=== PATIENT | male | born 1935 | race Caucasian/White ===

== ENCOUNTER 2018-05-06 10:45 | Outpatient (CLI) | payer MEDICARE, OTHER | END 2018-05-06 10:46 | disposition home or self-care (01) | LOC: SC 10:45 | PROVIDERS: ATTEND Nurse Practitioner Family | DX: G47.33 Obstructive sleep apnea (adult) (pediatric) (principal) | CPT/HCPCS: 99214; G0463; 99212 ==

== ENCOUNTER 2019-05-04 10:32 | Outpatient (CLI) | payer MEDICARE, OTHER ==
[2019-05-04 11:41] VITALS: BP 150/60
--- NOTE | 2019-05-04 11:41 | SLEEP CARE CONSULTATION ---
Information from patient questionnaire entered by Kristal Nova. I have reviewed and concur with the information entered by Kristal Nova. This document represents the service I personally performed and the decisions made by me, Briseyda Hernandez, RN, MSN, BANKING SUPERVISOR. History of Present Illness Previous diagnosis: Severe, Obstructive Sleep Apnea-Hypopnea Syndrome AHI: 36.8 Reason for CPAP/BiPAP follow up: annual Accompanied by: Spouse Equipment type: CPAP Equipment obtained from: [facility] (having problems getting supplies despite repeated attempts) Mask style: Full face Backup mask available: Yes Last cushion change: 2 months Prior sleep studies: Yes Year and Where: 2014 [facility] CPAP Compliance Data - Data Reviewed with Patient Average duration of nightly device use: 7h 2m Compliance rate %: 90 Current pressure setting (cmH2O): 8-10 Humidity settin Heated hose settin Average residual AHI: 1.4 Average large leak: zero On Oxygen: Yes Subjective Patient concerns: reports: air blowing in eyes, nasal congestion (chronic), dry mouth, nose, throat, other (increase in exhale sound and sometimes difficult to exhale and wonders if due to mask vent. He brought in his CPAP to show. ). denies: aerophagia (most days), mask discomfort, mask leak noise, condensation in mask/hose, epistaxis Observed to snore while using device: No Current pressure setting perceived as: comfortable On therapy, patient: reports: sleeping better, more rested overall. denies: drowsiness while driving Initial [place] Sleepiness Scale score: 10 Current [place] Sleepiness Scale score: 8 Allergies and Home Medications Known drug allergies: No Home medication list reviewed: Yes Allergy and home medication list: Medication Name (generic/name brand) Strength & Dosage Lialda 1.2GM TBEC one twice daily Metformin HCL 1000mg tab one twice daily Atenolol 50mg tab one daily Lisinopril 5mg tab one daily y Lipitor (Atorvastatin Calcium) 10mg tab one daily Finasteride 5mg tab one daily Doxazosin Mesylate 8mg tab one daily at bedtime allergy med unknown name daily Clobetasol Propionate 0.05% cream Apply to affected area twice daily Nystatin-Triamcinolone [id number] U/GM Apply to affected area once daily Fluticasone Propionate 50 mcg/act nasal Two sprays each nostril once daily Fish Oil 1200mg cap one daily Vitamin C 1000mg tab one daily Multi-Vitamin/Minerals Tab one daily Nasal spray - unknown prn probiotic daily Review of Systems Review of systems same as previous: Yes Physical Exam Blood Pressure: 150/60 Heart Rate: 60 O2 Saturation: 96 Height: 5 ft 10.5 in Weight: 200 lb 9.6 oz Body Mass Index: 28.3 BMI Classification: Overweight Impression and Plan 1. Obstructive Sleep Apnea-Hypopnea Syndrome, severe, with good treatment compliance and good apnea control. On CPAP therapy, the patient has better sleep quality and is more rested overall. He brought his CPAP in as felt the mask or PAP was not working properly. He explained that it appears he is unable to exhale and there is a weird noise at the vent of his mask. I set up his CPAP and it was set properly and appeared to be working in pressure. The accuracy of that pressure would need to be checked by a water monometer by a DME. Thus to rule out if his concerns were due to a malfunction mask vent, I gave him a sample F&P medium Simplus full face mask, which is his style as it is unknown when he will get supplies. It is hoped the better fitting mask will resolve the mask leaks into his eyes. Thus if continued problems with new mask airflow / noise, he is to contact me. At that time, it will be determined if his CPAP needs to be checked for malfunction or the pressure adjusted. For his supply concerns, I will transfer him to a new DME. My sales recruiting coordinator will inform of his choices and I will make a DWO prescription. For oral dryness, I advised him to adjust heated hose as his humidity is at maximum. He is not yet due for a new device. Patient's apnea severity and rationale for treatment to reduce apnea, improve sleep quality and reduce cardiovascular and cerebrovascular events was reviewed. I also reviewed the benefit of consistent device use of CPAP for his hypertension. 2. Elevated blood pressure. Patient monitors rarely at home. Thus he was advised to start checking daily and contact his PCP if continues to be elevated. Health risks of too high of blood pressure range discussed. New goals are 120/80 but individualized by PCP. He was advised urgent follow up if 180/100 or higher. Patient agreed with plan. Blood pressure card given for monitoring. He has an appointment in a few weeks with his PCP. * Continue CPAP pressure at 8-10 cmH2O * try new mask * Contact if continued mask, air flow or noise issues. * Transfer of care * Adjust heated hose * Notify me if snoring with mask or feeling that the pressure is too much or too little * Attempt to lose weight * Follow up with PCP if continued elevation of blood pressure. * Return for follow up in 1 year , or sooner if concerns arise I spent 100% of this 37 minute visit face to face with the patient with greater than 50% of this was spent time counseling the patient and coordination of care.
== END 2019-05-04 10:33 | disposition home or self-care (01) ==
LOC: SC 10:32
PROVIDERS: ATTEND Nurse Practitioner Family
DX: G47.33 Obstructive sleep apnea (adult) (pediatric) (principal); R03.0 Elevated blood-pressure reading, without diagnosis of hypertension
CPT/HCPCS: 99214; G0463; 99212

== ENCOUNTER 2020-04-20 10:54 | Outpatient (CLI) | payer MEDICARE, OTHER ==
[2020-04-20 11:43] VITALS: BP 154/60
--- NOTE | 2020-04-20 11:43 | SLEEP CARE CONSULTATION ---
Information from patient questionnaire entered by Shasta Brizuela. I have reviewed and concur with the information entered by Shasta Brizuela. This document represents the service I personally performed and the decisions made by me, Briseyda Hernandez, RN, MSN, JAILER CHIEF. History of Present Illness Service Date and Time: 04/20/2020 1054 Previous diagnosis: Severe, Obstructive Sleep Apnea-Hypopnea Syndrome AHI: 36.8 (in 2014) Reason for follow up: annual (last seen 2019) Accompanied by: Spouse Equipment type: CPAP Equipment obtained from: [facility] Mask style: Full face Prior sleep studies: Yes Year and Where: 2014 - [facility] Type of Sleep Study: Polysomnography CPAP Compliance Data - Data Reviewed with Patient Average duration of nightly device use: 7.5 Compliance rate %: 97.2 (180 days) Current pressure setting (cmH2O): 8-10 Humidity settin Heated hose settin Average residual AHI: 2.1 Average large leak: 9 sec Subjective Missed days of use due to: reports: travel Patient concerns: reports: dry mouth, nose, throat (mild - moderate dry mouth every morning ). denies: aerophagia, mask discomfort, air blowing in eyes, mask leak noise, condensation in mask/hose, nasal congestion, epistaxis, other Observed to snore while using device: No Current pressure setting perceived as: comfortable On therapy, patient: reports: sleeping better, awakening more refreshed, being more awake and alert during the day, more rested overall, other. denies: drowsiness while driving Initial [place] Sleepiness Scale score: 10 (in 2014) Current [place] Sleepiness Scale score: 6 Allergies and Home Medications Known drug allergies: No Home medication list reviewed: No (changed blood pressure medication - unknown name and dose) Review of Systems Review of systems same as previous: Yes Physical Exam Blood Pressure: 154/60 Cuff size: regular Heart Rate: 66 O2 Saturation: 98 Height: 5 ft 10.5 in Weight: 195 lb 12.8 oz Body Mass Index: 27.6 BMI Classification: Overweight Impression and Plan 1. Obstructive Sleep Apnea-Hypopnea Syndrome, severe, with good treatment compliance and goo apnea control. On CPAP therapy, the patient has better sleep quality and is more rested overall. He changes his filters randomly and advised of importance of at least monthly filter change. Questions answered about why to change CPAP supplies. He is due for new device. No problems currently with his CPAP and deferred updating. Symptoms to report for replacement of machine discussed. I advised him of the FDA warning of health risks associated with ozone CPAP medical officer psychiatry as he uses a So Clean. He is instead advised to use soap and water as recommended by DME / CPAP company or CPAP wipes for mask. FDA warning available online. Oral dryness can be reduced by adjusting humidity setting higher or heated hose lower or by adjusting both settings. Verbal instructions given on how to change humidity and heated hose settings with rationale explaining why to change. Patient advised that chronic oral dryness can affect dental health and advised to follow up with dentist. In addition, there are oral dryness products that can be used to reduce dryness such as Biotene products, Dry mouth rinse and Xylomelts. Patient to discuss best option with dentist. Patient is overweight especially central . He was advised of health risks associated with obesity and impact of weight to his apnea and CPAP pressure. He is advised to lose weight. Patient's apnea severity and rationale for treatment to reduce apnea, improve sleep quality and reduce cardiovascular and cerebrovascular events was reviewed. I also reviewed the benefit of consistent device use of CPAP for hypertension. Patient very hard of hearing and it took longer to communicate in repeat questions and written notes / questions to clarify patient concerns and inform him of his data. * Continue auto CPAP pressure at 8-10 cmH2O * Implement methods to reduce oral dryness. * Notify me if snoring with mask or feeling that the pressure is too much or too little * Attempt to lose some weight * Call this office if any problems using CPAP * Return for follow up in 1 year , or sooner if concerns arise Counseling Topics: Weight loss health impact Visit Type: In Office Time Spent with Patient (minutes): 33 Provider Statement: I spent 100% of the Face to Face Visit with the patient with greater than 50% spent counseling the patient and coordination of care.
== END 2020-04-20 10:55 | disposition home or self-care (01) ==
LOC: SC 10:54
PROVIDERS: ATTEND Nurse Practitioner Family
DX: G47.33 Obstructive sleep apnea (adult) (pediatric) (principal); E66.3 Overweight; Z68.27 Body mass index [BMI] 27.0-27.9, adult
CPT/HCPCS: 99214; G0463; 99212

== ENCOUNTER 2020-04-26 07:00 | Outpatient (CLI) | payer SELFPAY | END 2020-04-26 23:59 | disposition home or self-care (01) | LOC: COV 07:00 | PROVIDERS: ATTEND Family Medicine | DX: Z20.828 Contact with and (suspected) exposure to other viral communicable diseases (principal) ==

== ENCOUNTER 2020-06-22 12:05 | Outpatient (CLI) | payer MEDICARE, OTHER ==
--- NOTE | 2020-06-22 10:59 | SLEEP CARE CONSULTATION ---
Information from patient questionnaire entered by Shasta Brizuela. I have reviewed and concur with the information entered by Shasta Brizuela. This document represents the service I personally performed and the decisions made by me, Briseyda Hernandez, RN, MSN, BEACH PATROL LIEUTENANT. History of Present Illness Service Date and Time: 06/22/2020 1030 Previous diagnosis: Severe, Obstructive Sleep Apnea-Hypopnea Syndrome AHI: 36.8 (in 2015) Reason for follow up: other (2 month, needs new CPAP) Accompanied by: Spouse Equipment type: CPAP Equipment obtained from: [facility] Mask style: Full face Backup mask available: Yes (old mask ) Last cushion change: 1 month or more Prior sleep studies: Yes Year and Where: [address] - [facility] Type of Sleep Study: Polysomnography HPI additional information: Reviewed past visit note 04/22/20 due to limitation of time allowed for telehealth visit. CPAP Compliance Data - Data Reviewed with Patient Average duration of nightly device use: 7 hr 37 min Compliance rate %: 93.3 (60 days) Current pressure setting (cmH2O): 8-10 Humidity settin Heated hose settin Average residual AHI: 1.9 Average large leak: 9 sec Subjective Patient concerns: reports: air blowing in eyes (rare), dry mouth, nose, throat (dry mouth). denies: aerophagia, mask discomfort, mask leak noise, condensation in mask/hose, nasal congestion (rhinorrhea - intermittent - uses nasal spray ) Observed to snore while using device: No Current pressure setting perceived as: comfortable On therapy, patient: reports: sleeping better, awakening more refreshed, being more awake and alert during the day, more rested overall. denies: drowsiness while driving Initial [place] Sleepiness Scale score: 10 (in 2015) Physical Exam Height: 5 ft 10.5 in Impression and Plan 1. Obstructive Sleep Apnea-Hypopnea Syndrome, severe, with good treatment compliance and good apnea control. On CPAP therapy, the patient has better sleep quality and is more rested overall. Since last seen his device his CPAP device has started to make increased noise with use and he is concerned about it breaking down. The patients CPAP is over 5 years old and of reasonable use. In addition, the louder noise is a sign of malfunction. Thus, the CPAP will be updated. The new CPAPs also have a better humidity system which could assist control of patients dryness symptoms. A DWO prescription will be made. Compliance guidelines for new device and follow up discussed. Patient had questions about his CPAP ditch cleaner. He looked up the FDA warning as advised. His spouse states he likes the CPAP ditch cleaner due to convenience. Thus I again reviewed the risks of using the CPAP ditch cleaner and instead advised usual cleaning as directed by DME with soap and water / vinegar solution as indicated. To make it more convenient to clean his device, I advised him to take his mask when he gets up and wash it after he brushes his teeth. In addition there are CPAP wipes that can be obtained to use daily and then to clean all his equipment with soap and water as directed weekly. He can also ask [facility] again about the CPAP cleaning and device for any further concerns. For his dry mouth I advised him to continue using his Biotene products.Chronic oral dryness can contribute to dental caries.It is hoped that his new CPAP which has a better humidity device unit will assist in reduction of his oral dryness.Currently his humidity is set at maximum. Patient's apnea severity and rationale for treatment to reduce apnea, improve sleep quality and reduce cardiovascular and cerebrovascular events was reviewed. I also reviewed the benefit of consistent device use of CPAP for hypertension, * Update his Respironics autoCPAP pressure and set at 8-10 cmH2O * Implement methods to reduce oral dryness. * Stop CPAP ditch cleaner and use usual cleaning as discussed * Notify me if snoring with mask or feeling that the pressure is too much or too little * Call this office if any problems using CPAP * Return for follow up in 1 month after new device , or sooner if concerns arise Visit Type: Telehealth Phone ([employer]) Patient Location: Home Other Participants: Spouse/Significant Other Location of Provider: Home Patient agrees and consents to this telehealth visit type: Yes Patient agrees to have their insurance billed: Yes Time Spent with Patient (minutes): 14 Provider Statement: I spent 100% of the Telehealth Phone Call with the patient with greater than 50% spent counseling the patient and coordination of care.
== END 2020-06-22 12:06 | disposition home or self-care (01) ==
LOC: SC 12:05
PROVIDERS: ATTEND Nurse Practitioner Family
DX: G47.33 Obstructive sleep apnea (adult) (pediatric) (principal)

== ENCOUNTER 2020-08-16 10:56 | Outpatient (CLI) | payer MEDICARE, OTHER ==
--- NOTE | 2020-08-16 11:27 | SLEEP CARE CONSULTATION ---
Information from patient questionnaire entered by Shasta Brizuela. I have reviewed and concur with the information entered by Shasta Brizuela. This document represents the service I personally performed and the decisions made by , Yani Webster ARNP. History of Present Illness Service Date and Time: 08/16/2020 1056 Previous diagnosis: Severe, Obstructive Sleep Apnea-Hypopnea Syndrome AHI: 36.8 (in 2014) Reason for follow up: first compliance after device update Equipment type: CPAP Equipment obtained from: [facility] (getting supplies as needed) Mask style: Full face Backup mask available: Yes (old mask) Last cushion change: 1 week Prior sleep studies: Yes Year and Where: 2014 - [facility] Type of Sleep Study: Polysomnography HPI additional information: MARIANA PALACIOS was diagnosed to have severe, AHI 36.8, obstructive sleep apnea- hypopnea syndrome and returned today with spouse for CPAP therapy first compliance after updating device follow-up. CPAP Compliance Data - Data Reviewed with Patient Average duration of nightly device use: 7 hr 22 min Compliance rate %: 93.3 Current pressure setting (cmH2O): 8-10 Humidity settin Heated hose settin Average residual AHI: 3.0 Average large leak: 0 Subjective Patient concerns: reports: dry mouth, nose, throat (mouth breathing). denies: aerophagia, mask discomfort, air blowing in eyes, mask leak noise, condensation in mask/hose, nasal congestion, epistaxis, other Observed to snore while using device: No Current pressure setting perceived as: comfortable On therapy, patient: reports: sleeping better, awakening more refreshed, being more awake and alert during the day, more rested overall. denies: drowsiness while driving Initial [place] Sleepiness Scale score: 10 (in 2015) Current [place] Sleepiness Scale score: 7 Allergies and Home Medications Drug allergies reviewed: Yes Home medication list reviewed: Yes (no changes) Review of Systems Review of systems same as previous: Yes (no changes) Physical Exam Heart Rate: 66 O2 Saturation: 95 Height: 5 ft 10.5 in Weight: 196 lb Body Mass Index: 27.7 BMI Classification: Overweight Impression and Plan 1. Obstructive Sleep Apnea-Hypopnea Syndrome, severe, with good treatment compliance and good apnea control. On CPAP therapy, the patient has better sleep quality and is more rested overall. He continues to have some mouth dryness but states it has improved with the new machine. His humidity is set at 2 and I encouraged him to increase this to further reduce oral dryness. Oral dryness can be reduced by adjusting humidity setting higher or heated hose lower or by adjusting both settings. Verbal instructions given on how to change humidity and heated hose settings with rationale explaining why to change. Patient's apnea severity and rationale for treatment to reduce apnea, improve sleep quality and reduce cardiovascular and cerebrovascular events was reviewed. I also reviewed the benefit of consistent device use of CPAP for hypertension. * Continue auto CPAP pressure at 8-10 cmH2O * Adjust humidity up * Notify me if snoring with mask or feeling that the pressure is too much or too little * Attempt to lose weight * Call this office if any problems using CPAP * Return for follow up in 1 year, or sooner if concerns arise Counseling Topics: Spare mask, Weight loss health impact Visit Type: In Office Other Participants: Spouse/Significant Other Time Spent with Patient (minutes): 18 Provider Statement: I spent 100% of the Face to Face Visit with the patient with greater than 50% spent counseling the patient and coordination of care.
== END 2020-08-16 10:57 | disposition home or self-care (01) ==
LOC: SC 10:56
PROVIDERS: ATTEND Nurse Practitioner Family
DX: G47.33 Obstructive sleep apnea (adult) (pediatric) (principal); E66.3 Overweight; Z68.27 Body mass index [BMI] 27.0-27.9, adult
CPT/HCPCS: 99212; G0463

== ENCOUNTER 2021-03-10 13:51 | Outpatient (CLI) | payer MEDICARE, OTHER ==
--- NOTE | 2021-03-10 14:31 | SLEEP CARE CONSULTATION ---
Information from patient questionnaire entered by Shasta Brizuela. I have reviewed and concur with the information entered by Shasta Brizuela. This document represents the service I personally performed and the decisions made by , Yani Webster ARNP. History of Present Illness Service Date and Time: 03/10/2021 1351 Previous diagnosis: Severe, Obstructive Sleep Apnea-Hypopnea Syndrome AHI: 36.8 (in 2014) Reason for follow up: other (7 month, CPAP recall) Accompanied by: Spouse Equipment type: CPAP Equipment obtained from: [employer] (getting supplies as needed) Mask style: Full face Backup mask available: Yes (old mask) Prior sleep studies: Yes Year and Where: 2014 - [facility] Type of Sleep Study: Polysomnography HPI additional information: MARIANA PALACIOS was diagnosed to have severe, AHI 36.8, obstructive sleep apnea- hypopnea syndrome and returned today with spouse for CPAP therapy 7 month follow-up to discuss Cpap recall. CPAP Compliance Data - Data Reviewed with Patient Average duration of nightly device use: 7 hr 17 min Compliance rate %: 87.2 (180 days) Current pressure setting (cmH2O): 8-10 Humidity settin Heated hose settin Average residual AHI: 3.8 Average large leak: 1 sec Subjective Patient concerns: reports: dry mouth, nose, throat. denies: aerophagia, mask discomfort, air blowing in eyes, mask leak noise, condensation in mask/hose, nasal congestion, epistaxis, other Observed to snore while using device: No Current pressure setting perceived as: comfortable On therapy, patient: reports: sleeping better, awakening more refreshed, being more awake and alert during the day, more rested overall. denies: drowsiness while driving Initial [place] Sleepiness Scale score: 10 (in 2015) Current [place] Sleepiness Scale score: 5 Allergies and Home Medications Home medication list reviewed: Yes (no changes) Review of Systems Review of systems same as previous: Yes (no changes) Physical Exam Heart Rate: 68 O2 Saturation: 97 Height: 5 ft 11 in Weight: 190 lb Body Mass Index: 26.4 BMI Classification: Overweight Impression and Plan 1. Obstructive Sleep Apnea-Hypopnea Syndrome, severe, with good treatment comp liance and good apnea control. On CPAP therapy, the patient has better sleep quality and is more rested overall. Patient is here with his and they voiced concerns about some sneezing and allergy-like symptoms when using his device. They do not know if it is connected to the device but since it is on recall I do not feel he can continue using it. They were notified of the recall on their device and were told that he should not use the device. Patient has already registered their device for the recall. Patient denies any black particles seen in machine or hoses, any unusual odors coming from device. Patient informed that they may use an inline CPAP filter that they can obtain online to reduce chance of any particles being inhaled or ingested. We discussed thoroughly the health risks of not using the CPAP versus continuing use with the filter in place. Patient would also like to transfer to a new [employer] company since they are not happy with [employer] service. I will write to transfer to a new DME and a prescription for replacement device as well as supplies. We will follow- up with him 1 month after he obtains his new device. Patient voiced understanding and agreement with plan. Patient's apnea severity and rationale for treatment to reduce apnea, improve sleep quality and reduce cardiovascular and cerebrovascular events was reviewed. I also reviewed the benefit of consistent device use of CPAP for hypertension. * Continue autoCPAP pressure at 8-10 cmH2O * Transfer DME * Replacement device for recalled CPAP * Notify me if snoring with mask or feeling that the pressure is too much or too little * Attempt to lose weight * Call this office if any problems using CPAP * Return for follow up one month after obtaining new device, or sooner if concerns arise Counseling Topics: Spare mask, Weight loss health impact Visit Type: In Office Time Spent with Patient (minutes): 24 Provider Statement: I spent 100% of the Face to Face Visit with the patient with greater than 50% spent counseling the patient and coordination of care.
== END 2021-03-10 13:52 | disposition home or self-care (01) ==
LOC: SC 13:51
PROVIDERS: ATTEND Nurse Practitioner Family
DX: G47.33 Obstructive sleep apnea (adult) (pediatric) (principal)
CPT/HCPCS: 99213; G0463; 99212

== ENCOUNTER 2022-04-27 14:21 | Outpatient (CLI) | payer MEDICARE, OTHER ==
[2022-04-27 14:56] VITALS: BP 142/62
--- NOTE | 2022-04-27 14:56 | SLEEP CARE CONSULTATION ---
Information from patient questionnaire entered by Jerson Pruitt. I have reviewed and concur with the information entered by Jerson Pruitt. This document represents the service I personally performed and the decisions made by me, Yani Webster ARNP. History of Present Illness Service Date and Time: 04/27/2022 1421 Previous diagnosis: Severe, Obstructive Sleep Apnea-Hypopnea Syndrome AHI: 36.8 (in 2014) Reason for follow up: annual (LAST SEEN 03/2021) Accompanied by: Spouse Equipment type: CPAP (DREAMSTATION) Equipment obtained from: Other ([facility]: getting supplies as needed) Mask style: Full face Backup mask available: Yes (old mask) Prior sleep studies: Yes Year and Where: 2014 - [facility] Type of Sleep Study: Polysomnography HPI additional information: MARIANA PALACIOS was diagnosed to have severe, AHI 36.8, obstructive sleep apnea- hypopnea syndrome and returned today for CPAP therapy annual follow-up. Sleep Study - Results Type of Sleep Study: Polysomnography Prior sleep studies: Yes Year and Where: 2014 [facility] Compliance Data - Data Reviewed with Patient Average duration of nightly device use: 7 hrs 24 min 44sec Compliance rate %: 88.3 (06/02/21-11/28/21; 171/190 days used) Current pressure setting (cmH2O): 8-10 Average residual AHI: 4.2 Central apnea: 0.3 Obstructive apnea: 2 Hypopnea: 1.9 Subjective Patient concerns: reports: mask discomfort (bridge of nose redness, not soreness), dry mouth, nose, throat (just a little). denies: aerophagia, air blowing in eyes, mask leak noise, condensation in mask/hose, nasal congestion, epistaxis Observed to snore while using device: No Current pressure setting perceived as: comfortable On therapy, patient: reports: sleeping better, awakening more refreshed, being more awake and alert during the day, more rested overall. denies: drowsiness while driving Initial [place] Sleepiness Scale score: 10 (in 2014) Current [place] Sleepiness Scale score: 10 (04/2022) Allergies and Home Medications Drug allergies reviewed: Yes (NKDA) Home medication list reviewed: Yes (Gabapentin at bedtime for sleep) Review of Systems Review of systems same as previous: Yes (no changes) Physical Exam Vital signs obtained and entered by: JERSON Bird MA Blood Pressure: 142/62 (leftarm) Cuff size: regular Heart Rate: 70 O2 Saturation: 96 Height: 5 ft 11 in Weight: 193 lb Body Mass Index: 26.9 BMI Classification: Overweight Impression and Plan 1. Obstructive Sleep Apnea-Hypopnea Syndrome, severe, with good treatment com pliance and good apnea control. On CPAP therapy, the patient has better sleep quality and is more rested overall. Patient has significant improvement of their sleep apnea and are satisfied with current CPAP therapy. Patient has had some oral dryness but he states its not very much and he has most of his life. Patient denies problems with nasal congestion, epistaxis, skin irritation or aerophagia. Patient's apnea severity and rationale for treatment to reduce apnea, improve sleep quality and reduce cardiovascular and cerebrovascular events was reviewed. I also reviewed the benefit of consistent device use of CPAP for hypertension. I will update patient prescription for his supplies. Patient would like to try a different mask because they when he has leaves red gunter on the top of his nose. I will add this to his prescription. * Continue auto CPAP pressure at 8-10 cmH2O * Mask fitting on different full face mask * Update supplies * Notify me if snoring with mask or feeling that the pressure is too much or too little * Call this office if any problems using CPAP * Return for follow up in 1 year, or sooner if concerns arise Counseling Topics: Spare mask, Weight loss health impact Visit Type: In Office Other Participants: Spouse/Significant Other Time Spent with Patient (minutes): 23 Provider Statement: I spent 100% of the Face to Face Visit with the patient with greater than 50% spent counseling the patient and coordination of care.
== END 2022-04-27 14:22 | disposition home or self-care (01) ==
LOC: SC 14:21
PROVIDERS: ATTEND Nurse Practitioner Family
DX: G47.33 Obstructive sleep apnea (adult) (pediatric) (principal)
CPT/HCPCS: 99213; G0463; 99212

== ENCOUNTER 2023-07-06 00:06 | Outpatient (CLI) | payer MEDICARE, OTHER | END 2023-07-06 23:59 | disposition critical access hospital (66) | LOC: EMS 00:06 | DX: S01.111A Laceration without foreign body of right eyelid and periocular area, initial encounter (principal); W18.30XA Fall on same level, unspecified, initial encounter; Y92.002 Bathroom of unspecified non-institutional (private) residence as the place of occurrence of the external cause; F10.90 Alcohol use, unspecified, uncomplicated | CPT/HCPCS: A0425; A0429 ==

== ENCOUNTER 2023-07-06 00:22 | Emergency (ER) | payer MEDICARE, OTHER ==
[2023-07-06] MEDS ORDERED: LIDOCAINE 1%-EPI 1:100000 10 ML MDV SUBQ STA (00:42)
[2023-07-06] MEDS ORDERED: LIDOCAINE 2%-EPI 1:100000 20 ML MDV ONE (01:00)
[2023-07-06] MEDS ORDERED: LIDOCAINE 2%-EPI 1:100000 20 ML MDV SUBQ STA (01:03)
--- NOTE | 2023-07-06 04:23 | ED Physician Documentation ---
History of Present Illness - Stated complaint Stated Complaint: GLF/EYE LAC - Chief complaint Chief Complaint: Laceration - Additonal information Additional information: Patient 87-year-old male presenting to the emergency department with laceration over right eye. Unwitnessed fall at home today. Patient amnestic to events. Reports has had "a few drinks". Does not take blood thinning medications. Review of Systems Constitutional: denies: Fever Eyes: denies: Loss of vision Ears: denies: Loss of hearing Nose: denies: Rhinorrhea / runny nose Throat: denies: Dental pain / toothache Cardiac: denies: Chest pain / pressure Respiratory: denies: Dyspnea PD PAST MEDICAL HISTORY - Past Medical History Past Medical History: Yes Cardiovascular: Hypertension, High cholesterol Respiratory: CPAP use Endocrine/Autoimmune: Type 2 diabetes GI: GERD Psych: None Musculoskeletal: Osteoarthritis - Past Surgical History Past Surgical History: Yes General: Cholecystectomy, Other Ortho: Shoulder arthroplasty - Present Medications Home Medications: Ambulatory Orders Medication Instructions Recorded Confirmed Atorvastatin Calcium [Lipitor] 10 mg PO QPM 01/14/13 07/06/23 Doxazosin [Cardura] 8 mg PO QPM 01/14/13 07/06/23 metFORMIN [Glucophage] 500 mg PO BIDWM 01/14/13 07/06/23 Cholecalciferol [Vitamin D3] See Rx Instructions .ROUTE .COMPLEX 07/24/22 07/06/23 Amlodipine Besylate [Norvasc] 2.5 mg PO DAILY 07/06/23 07/06/23 Donepezil HCl [Aricept] 10 mg PO QPM 07/06/23 07/06/23 Fexofenadine HCl 180 mg PO DAILY 07/06/23 07/06/23 Finasteride [Proscar] 5 mg PO DAILY 07/06/23 07/06/23 Losartan Potassium 100 mg PO QPM 07/06/23 07/06/23 Mesalamine [Lialda] 1 tab PO BID 07/06/23 07/06/23 Metoprolol Succinate [Kapspargo 25 mg PO BID 07/06/23 07/06/23 Sprinkle] Multivitamin 1 each PO DAILY 07/06/23 07/06/23 Pantoprazole Sodium [Protonix] 40 mg PO DAILY 07/06/23 07/06/23 Sertraline HCl [Zoloft] 50 mg PO DAILY 07/06/23 07/06/23 Vitamin B Complex 1 tab PO ONCE 07/06/23 07/06/23 - Allergies Allergies/Adverse Reactions: Allergies Allergy/AdvReac Type Severity Reaction Status Date / Time No Known Drug Allergies Allergy Verified 07/06/23 00:33 - Social History Does the pt smoke?: No Smoking Status: Never smoker Does the pt drink ETOH?: Yes - Immunizations Immunizations are current?: Yes PD ED PE NORMAL - General General: Alert and oriented X 3 - HEENT HEENT: Other (2.5 cm laceration over the right eye, no involvement in the lacrimal gland.) - Neck Neck: Supple, no meningeal sign, No bony TTP, No adenopathy, Thyroid normal, No JVD - Cardiac Cardiac: RRR - Respiratory Respiratory: No respiratory distress - Abdomen Abdomen: Normal bowel sounds - Male Male : Deferred - Rectal Rectal: Deferred - Back Back: No spinal TTP - Derm Derm: Normal color - Extremities Extremities: No deformity - Neuro Neuro: Alert and oriented X 3, packer and carry out 2-12 intact, No motor deficit, No sensory deficit, Normal speech Results - Vitals Vitals: Vital Signs - 24 hr 07/06/23 07/06/23 07/06/23 00:33 02:49 05:17 Temperature 36.3 C L Heart Rate 57 L 60 52 L Respiratory 17 17 16 Rate Blood Pressure 121/57 L 172/59 H 164/60 H O2 Saturation 95 91 L 92 Oxygen O2 Source Room air Procedures - Laceration (location) Scalp right Length in cm: 2.5 Wound type: Linear Neurovascular status: Sensory intact Anesthesia: Lidocaine 2% with epi Wound preparation: Betadine Skin layer closure: Nylon, Size #-0 - enter number (4-0), Sutures - enter # (5) Other: Patient tolerated well PD Medical Decision Making - ED course Complexity details: reviewed results, re-evaluated patient, considered differential ED course: Patient 87-year-old male presenting after fall at home. Afebrile, hemodynamically stable. No focal or lateralizing neurologic deficits. Laceration above the right eyebrow repaired as noted in procedure note above. CT head C-spine nonacute. Passed ambulatory trial in the emergency department without difficulty. Given wound care and follow-up instructions prior to discharge. Departure - Departure Disposition: 01 Home, Self Care Clinical Impression: Fall Qualifiers: Encounter type: initial encounter Qualified Code(s): W19.XXXA - Unspecified fall, initial encounter Scalp laceration Qualifiers: Encounter type: initial encounter Qualified Code(s): S01.01XA - Laceration without foreign body of scalp, initial encounter Instructions: ED Laceration Scalp Stitch Or Stap Comments: Thank you for allowing us to care for you today at [facility]. Today in the emergency department you received 5 stitches to the laceration of your right scalp. These will need to be removed in 7 days. You can follow-up with your primary care doctor, urgent care or return to the emergency department for suture removal. I recommend twice daily application of an [id number] topical antibiotic ointment such as bacitracin or Neosporin to the site of your injury while it heals. The rest of your imaging here in the emergency department including the CT scan of your head and neck were very reassuring. If it anytime you have new or worsening symptoms please not hesitate to return. Forms: PCP List Discharge Date/Time: 07/06/23 05:18
[2023-07-06 05:26] VITALS: BP 164/60; O2SAT 92
--- NOTE | 2023-07-06 09:02 | CT Report ---
PROCEDURE: HEAD WO INDICATIONS: fall, dementia, facial lac TECHNIQUE: Noncontrast 4.5 mm thick angled axial sections acquired from the foramen magnum to the vertex. For r adiation dose reduction, the following was used: automated exposure control, adjustment of mA and/or kV according to patient size. COMPARISON: None. FINDINGS: Image quality: Diagnostic CSF spaces: Basal cisterns are patent. Lateral ventricles are symmetric. Volume: Vascular calcifications. Periventricular white matter disease is commonly seen with chronic m icroangiopathy. Volume loss is present. These findings are moderate. Brain: No intracranial hemorrhage. Crandall-white differentiation is grossly maintained. Craniofacial structures: Ethmoid air cell and frontal mucosal thickening. No displaced fracture is id entified in the [id number]. IMPRESSION: No acute intracranial abnormality. Agree with preliminary report. Reviewed by: Riley Cat MD on 07/06/2023 9:00 AM [facility] Approved by: Riley Cat MD on 07/06/2023 9:00 AM PST Station ID: [id number]
--- NOTE | 2023-07-06 09:04 | CT Report ---
PROCEDURE: CERVICAL SPINE WO INDICATIONS: Fall, dementia, facal laceration TECHNIQUE: Noncontrast 3 mm thick sections acquired from the skull base to the T4 level. Sagittal and coronal r eformats were then constructed. For radiation dose reduction, the following was used: automated exp osure control, adjustment of mA and/or kV according to patient size. COMPARISON: None. FINDINGS: Image quality: Diagnostic Bones: Mild to moderate spondylotic changes. No displaced fracture or dislocation. Soft tissues: Vascular calcifications. No actionable thyroid nodules. No apical pneumothorax. No path ologic prevertebral soft tissue swelling. IMPRESSION: Spondylotic changes. No acute vertebral body height loss or traumatic subluxation. Agree with prelimi nary report. Reviewed by: Riley Cat MD on 07/06/2023 9:03 AM [facility] Approved by: Riley Cat MD on 07/06/2023 9:03 AM [facility] Station ID: [id number]
== END 2023-07-06 05:18 | disposition home or self-care (01) ==
LOC: EDUNIT# → ED 00:22
DX: S01.81XA Laceration without foreign body of other part of head, initial encounter (principal); W19.XXXA Unspecified fall, initial encounter
CPT/HCPCS: 12001; 99283; 99284

== ENCOUNTER 2023-07-31 14:03 | Outpatient (CLI) | payer MEDICARE, OTHER ==
--- NOTE | 2023-07-31 14:31 | Sleep Patient Instructions ---
Sleep Center Visit Summary - Patient Visit Information Reason for Visit: Annual Visit - Patient Instructions Additional Instructions: You will continue with CPAP therapy with pressure set at 10-12 cmH2O. Please let us know if the pressure change feels uncomfortable for further adjustment if needed. A supply prescription will be updated with your DME. We encourage you to continue to try to lose weight. Please follow up with the sleep care office in 1 year. - Clinic Information Contact: [facility] [address] [place] [address] [email or web address] T: [phone]
--- NOTE | 2023-07-31 14:37 | SLEEP CARE CONSULTATION ---
Information from patient questionnaire entered by Mey Pruitt. I have reviewed and concur with the information entered by Mey Pruitt. This document represents the service I personally performed and the decisions made by me, Yani Webster ARNP. History of Present Illness Service Date and Time: 07/31/2023 1403 Previous diagnosis: Severe, Obstructive Sleep Apnea-Hypopnea Syndrome AHI: 36.8 (in 2014) Reason for follow up: annual (LAST SEEN 07/2022) Accompanied by: Spouse (Olivia) Equipment type: CPAP (DREAMSTATION 2; s/u 11/2021) Equipment obtained from: Other ([facility]: getting supplies as needed) Mask style: Full face Mask brand: [employer] (Vitera) Backup mask available: Yes Last cushion change: 6 weeks Prior sleep studies: Yes Year and Where: 2014 - [facility] Type of Sleep Study: Polysomnography HPI additional information: MARIANA PALACIOS was diagnosed to have severe, AHI 36.8, obstructive sleep apnea- hypopnea syndrome and returned today for CPAP therapy annual follow-up. He was accompanied by his Olivia who states he is having memory issues. Sleep Study - Results Type of Sleep Study: Polysomnography Prior sleep studies: Yes Year and Where: 2014 - [facility] CPAP Compliance Data - Data Reviewed with Patient Average duration of nightly device use: 8 hours 31 minutes Compliance rate %: 97.8 (05/01/2023-07/29/2023; 90/90 days used) Current pressure setting (cmH2O): 9-11 (according to website) (90% 10, peak 9.9) Average residual AHI: 5.6 Central apnea: 0.3 Obstructive apnea: 3.1 Hypopnea: 2.2 Average large leak: 3 secs Subjective Patient concerns: reports: mask leak noise, dry mouth, nose, throat (oral venting). denies: aerophagia, mask discomfort, air blowing in eyes, condensation in mask/hose, nasal congestion, epistaxis Observed to snore while using device: Yes (occasional) Current pressure setting perceived as: comfortable On therapy, patient: reports: sleeping better, awakening more refreshed, being more awake and alert during the day, more rested overall. denies: drowsiness while driving Initial [place] Sleepiness Scale score: 10 (in 2014) Current [place] Sleepiness Scale score: 6 (07/31/23) Allergies and Home Medications Known drug allergies: No Drug allergies reviewed: Yes Home medication list reviewed: Yes (stopping Vitamin B complex) Allergy and home medication list: Allergies No Known Drug Allergies Allergy (Verified 07/29/23 14:00) Review of Systems Review of systems same as previous: Yes (NO CHANGE) Physical Exam Vital signs obtained and entered by: MEY Bird MA Blood Pressure: 158/64 (LEFT ARM) Cuff size: regular Heart Rate: 56 O2 Saturation: 94 Height: 5 ft 11 in Weight: 185 lb 6.4 oz Body Mass Index: 25.8 BMI Classification: Overweight Impression and Plan 1. Obstructive Sleep Apnea-Hypopnea Syndrome, severe, with good treatment compliance and good apnea control with minimal elevation of residual AHI. On CPAP therapy, the patient has better sleep quality and is more rested overall. His says he still gets a little sleepy in the afternoon but states he has a other health issues and is 87 years old. She states he occasionally will snore but she thinks that is when his mouth is coming open when he sleeping. His residual AHI is still minimally elevated and I will make another adjustment to his pressure. The patients pressure will be changed to autoCPAP 10-12 cmH20 for elevation of residual AHI. Patient advised to contact me if pressure change is uncomfortable so that it can be adjusted. Goals for apnea control discussed. Patient's apnea severity and rationale for treatment to reduce apnea, improve sleep quality and reduce cardiovascular and cerebrovascular events was reviewed. I also reviewed the benefit of consistent device use of CPAP for hypertension. We will follow-up with him next year. 2. Overweight, unspecified. Currently patients BMI is 25.8. Obesity increases the risk of apnea, CPAP pressure requirements and overall health risks especially cardiovascular and diabetes. Thus patient is advised to maintain a healthy weight. * Change auto CPAP pressure to 10-12 cmH2O * Update supply prescription * Notify me if snoring with mask or feeling that the pressure is too much or too little * Attempt to lose weight * Call this office if any problems using CPAP * Return for follow up in 12 months, or sooner if concerns arise Adjust device pressure to (cmH2O): 10-12 Counseling Topics: Weight loss health impact Prescriptions: Device supplies Follow up with Sleep Care in: 1 year Visit Type: In Office Time Spent with Patient (minutes): 20 Provider Statement: I spent 100% of the Face to Face Visit with the patient with greater than 50% spent counseling the patient and coordination of care.
[2023-07-31 14:42] VITALS: BP 158/64; O2SAT 94
== END 2023-07-31 14:04 | disposition home or self-care (01) ==
LOC: SC 14:03
PROVIDERS: ATTEND Nurse Practitioner Family
DX: G47.33 Obstructive sleep apnea (adult) (pediatric) (principal); E66.3 Overweight; Z68.25 Body mass index [BMI] 25.0-25.9, adult
CPT/HCPCS: 99213; G0463; 99212

== ENCOUNTER 2023-12-11 00:31 | Outpatient (CLI) | payer MEDICARE, OTHER | END 2023-12-11 00:32 | disposition critical access hospital (66) | LOC: EMS 00:31 | DX: I95.9 Hypotension, unspecified (principal); R00.1 Bradycardia, unspecified; F10.90 Alcohol use, unspecified, uncomplicated; W18.30XA Fall on same level, unspecified, initial encounter; Y92.002 Bathroom of unspecified non-institutional (private) residence as the place of occurrence of the external cause | CPT/HCPCS: A0425; A0429 ==

== ENCOUNTER 2023-12-11 00:47 | Emergency (ER) | payer MEDICARE, OTHER ==
[2023-12-11] MEDS: SODIUM CHLORIDE 0.9% 1,000 ML IV STA (00:58)
[2023-12-11 01:11] LABS: BASOPHILS # (AUTO) 0.1 10^3/uL (0.0-0.1); BASOPHILS % (AUTO) 1.2 %; EOSINOPHILS # (AUTO) 0.8 10^3/uL (0.0-0.7); EOSINOPHILS % (AUTO) 13.9 %; HCT - HEMATOCRIT 35.3 % (42.0-52.0); HGB - HEMOGLOBIN 11.3 g/dL (14.0-18.0); LYMPHOCYTES # (AUTO) 1.7 10^3/uL (1.5-3.5); LYMPHOCYTES % (AUTO) 28.9 %; MEAN CORPUSCULAR HEMOGLOBIN 30.8 pg (27.0-31.0); MEAN CORPUSCULAR VOLUME 96.2 fL (80.0-94.0); MEAN PLATELET VOLUME 9.2 fL (7.4-11.4); MONOCYTES # (AUTO) 0.5 10^3/uL (0.0-1.0); MONOCYTES % (AUTO) 7.7 %; NEUTROPHILS # (AUTO) 2.9 10^3/uL (1.5-6.6); NEUTROPHILS % (AUTO) 48.1 %; PLT - PLATELET COUNT 188 10^3/uL (130-450); RED BLOOD COUNT 3.67 10^6/uL (4.70-6.10); RED CELL DISTRIBUTION WIDTH 12.8 % (12.0-15.0)
[2023-12-11 01:24] LABS: ALBUMIN 3.6 g/dL (3.2-5.5); ALBUMIN/GLOBULIN RATIO 1.6 (1.0-2.2); BILIRUBIN,TOTAL 0.4 mg/dL (0.2-1.0); CALCIUM 9.1 mg/dL (8.5-10.3); CREATININE 1.3 mg/dL (0.6-1.3); ETOH - ETHANOL 230.6 mg/dL; POTASSIUM 3.7 mmol/L (3.5-4.5); TOTAL PROTEIN 5.9 g/dL (6.4-8.9)
--- NOTE | 2023-12-11 01:55 | CT Report ---
PROCEDURE: Head WO INDICATIONS: fall/head inj/drunk TECHNIQUE: Noncontrast 4.5 mm thick angled axial sections acquired from the foramen magnum to the vertex. For r adiation dose reduction, the following was used: automated exposure control, adjustment of mA and/or kV according to patient size. COMPARISON: Head CT 07/06/2023. FINDINGS: Image quality: Excellent. CSF spaces: Basal cisterns are patent. No extra-axial fluid collections. Ventricles are symmetric in size and shape. Brain: No midline shift. No intracranial masses or hemorrhage. Hypodensities in the subcortical and periventricular white matter are most commonly seen in setting of chronic microvascular ischemic pito nges. Age-related cerebral and cerebellar volume loss is seen. Intracranial vascular calcifications a re noted in the internal carotid arteries. Skull and face: Calvarium and visualized facial bones are intact, without suspicious lesions. Sinuses: Partial opacification of the bilateral ethmoid air cells. The remaining visualized paranasa l sinuses and the mastoid air cells are clear. IMPRESSION: 1.No acute intracranial pathology. 2.Paranasal sinus disease. 3.Stable chronic findings. Reviewed by: Tariq Fregoso MD on 12/11/2023 1:53 AM PDT Approved by: Tariq Fregoso MD on 12/11/2023 1:53 AM PDT Station ID: [id number]
--- NOTE | 2023-12-11 01:58 | CT Report ---
PROCEDURE: Cervical Spine WO INDICATIONS: fall/head inj/drunk TECHNIQUE: Noncontrast 3 mm thick sections acquired from the skull base to the T4 level. Sagittal and coronal r eformats were then constructed. For radiation dose reduction, the following was used: automated exp osure control, adjustment of mA and/or kV according to patient size. COMPARISON: Cervical spine CT 07/06/2023 FINDINGS: Image quality: Excellent. Bones: No acute fractures or dislocations. Visualized superior ribs are intact. Multilevel disc sp lester narrowing degenerative endplate changes. Multilevel uncovertebral joint and facet hypertrophy. Soft tissues: Prevertebral soft tissues are normal in thickness. No paravertebral hematomas. Parti al opacification of the ethmoid air cells. IMPRESSION: No acute, displaced fracture or traumatic subluxation. Reviewed by: Tariq Fregoso MD on 12/11/2023 1:57 AM PDT Approved by: Tariq Fregoso MD on 12/11/2023 1:57 AM PDT Station ID: [id number]
--- NOTE | 2023-12-11 05:58 | ED Physician Documentation ---
History of Present Illness - Stated complaint Stated Complaint: ETOH/FALL - Chief complaint Chief Complaint: General - History obtained from History obtained from: Patient, EMS - Additonal information Additional information: The patient is brought to the emergency department by EMS for chief complaint of acute alcohol intoxication and ground-level fall at home. The patient according to the went out to get alcohol earlier this evening and had an unknown amount of drinks.. The patient states that he just had "a martini". He does not remember anything after that though apparently, according to what the told the medics, the patient had been on the toilet and the heard him fall. It appeared he had fallen off the toilet and is unclear whether he had hit his head or not. She could not get him up so she called EMS. The states he has been having more falls recently. The patient denies any pain. He keeps stating, "I do not know why the hell I am here". The patient specifically denies any pain in his chest or spine. No upper extremity pain. No hip pain. No lower extremity pain. No abdominal pain. No nausea or vomiting. Has had does not hurt. No other complaints at this time. PD PAST MEDICAL HISTORY - Past Medical History Past Medical History: Yes Cardiovascular: Hypertension, High cholesterol Respiratory: CPAP use Endocrine/Autoimmune: Type 2 diabetes GI: GERD Psych: None Musculoskeletal: Osteoarthritis - Past Surgical History Past Surgical History: Yes General: Cholecystectomy, Other Ortho: Shoulder arthroplasty - Present Medications Home Medications: Ambulatory Orders Medication Instructions Recorded Confirmed Atorvastatin Calcium [Lipitor] 10 mg PO QPM 01/14/13 07/31/23 Doxazosin [Cardura] 8 mg PO QPM 01/14/13 07/31/23 metFORMIN [Glucophage] 500 mg PO BIDWM 01/14/13 07/31/23 Cholecalciferol [Vitamin D3] See Rx Instructions .ROUTE .COMPLEX 07/24/22 07/31/23 Amlodipine Besylate [Norvasc] 2.5 mg PO DAILY 07/06/23 07/31/23 Donepezil HCl [Aricept] 10 mg PO QPM 07/06/23 07/31/23 Fexofenadine HCl 180 mg PO DAILY 07/06/23 07/31/23 Finasteride [Proscar] 5 mg PO DAILY 07/06/23 07/31/23 Losartan Potassium 100 mg PO QPM 07/06/23 07/31/23 Mesalamine [Lialda] 1 tab PO BID 07/06/23 07/31/23 Metoprolol Succinate [Kapspargo 25 mg PO BID 07/06/23 07/31/23 Sprinkle] Multivitamin 1 each PO DAILY 07/06/23 07/31/23 Pantoprazole Sodium [Protonix] 40 mg PO DAILY 07/06/23 07/31/23 Sertraline HCl [Zoloft] 50 mg PO DAILY 07/06/23 07/31/23 - Allergies Allergies/Adverse Reactions: Allergies Allergy/AdvReac Type Severity Reaction Status Date / Time No Known Drug Allergies Allergy Verified 12/11/23 00:54 - Social History Does the pt smoke?: No Smoking Status: Never smoker Does the pt drink ETOH?: Yes - Immunizations Immunizations are current?: Yes PD ED PE NORMAL - Vitals Vital signs reviewed: Yes - General General: No acute distress, Well developed/nourished, Other (Alert, answers questions appropriately, but exhibits slurring of speech consistent with alcohol intoxication) - HEENT HEENT: Atraumatic, PERRL, EOMI, Moist mucous membranes - Neck Neck: Supple, no meningeal sign, No bony TTP - Cardiac Cardiac: RRR, Strong equal pulses, Other (2 out of 6 systolic murmur) - Respiratory Respiratory: No respiratory distress, Clear bilaterally - Abdomen Abdomen: Soft, Non tender, Non distended - Derm Derm: Normal color, Warm and dry, No rash - Extremities Extremities: No deformity - Neuro Neuro: Other (Patient is clinically intoxicated with slurred speech and some slowing of speech as well. Lacks remembrance of the events of recent hours. Otherwise no gross deficits.) - Psych Psych: Normal mood, Normal affect Results - Vitals Vitals: Vital Signs - 24 hr 12/11/23 12/11/23 12/11/23 00:51 02:14 04:48 Temperature 36.1 C L Heart Rate 52 L 63 58 L Respiratory 16 16 16 Rate Blood Pressure 117/61 125/62 150/50 H O2 Saturation 94 96 1 L If not protocol 1 : Oxygen Flow, liters/minute Oxygen O2 Source Nasal cannula - EKG (time done) 0101 EKG releavant findings:: EKG personally interpreted by author of this note. Relevant findings are: Rate: Rate (enter#) (51) Rhythm: Sinus bradycardia Vona: LAD (Borderline) Intervals: Normal ID QRS: Normal Ischemia: Non specific changes Compare to prior EKG: Old EKG unavailable Computer interpretation: Agree with computer - Labs Labs: Laboratory Tests 12/11/23 12/11/23 01:03 01:03 WBC 6.0 RBC 3.67 L Hgb 11.3 L Hct 35.3 L MCV 96.2 H MCH 30.8 MCHC 32.0 RDW 12.8 Plt Count 188 MPV 9.2 Neut # (Auto) 2.9 Lymph # (Auto) 1.7 [place] # (Auto) 0.5 Eos # (Auto) 0.8 H Baso # (Auto) 0.1 Absolute Nucleated RBC 0.00 Nucleated RBC % 0.0 Sodium 136 Potassium 3.7 Chloride 104 Carbon Dioxide 18 L Anion Gap 14.0 H BUN 20 Creatinine 1.3 Estimated GFR (MDRD) 52 L Glucose 143 H Calcium 9.1 Total Bilirubin 0.4 AST 13 ALT 5 L Alkaline Phosphatase 47 Total Protein 5.9 L Albumin 3.6 Globulin 2.3 Albumin/Globulin Ratio 1.6 Lipase 31 Ethyl Alcohol 230.6 - Rads (name of study) CT head Relevant Findings:: Final report received, See rad report (No acute findings) CT C-spine Relevant Findings:: Final report received, See rad report (No fracture, dislocation, or other concerning findings) PD Medical Decision Making - ED course Complexity details: reviewed old records, reviewed results, re-evaluated patient, considered differential, d/w patient ED course: The patient was worked up with labs, EKG, and CT scans of the head and neck. His alcohol level was found to be 230. The remainder of his workup was neg ative. He was observed in the emergency department and given IV fluids and after 5 hours of observation, the patient was found to be improving clinically. He was no longer slurring his words as much and was steady on his feet walking to the bathroom. He was remembering more why he was here in the ED instead of Repeatedly asking why he was here. The patient was stable for discharge at this point. We have called his will be coming to get him. We have discussed the risks of drinking and trying to get up and around at his age. We have discussed the usual indications for return. Departure - Departure Disposition: 01 Home, Self Care Clinical Impression: Ground-level fall Alcohol intoxication Qualifiers: Complication of substance-induced condition: uncomplicated Qualified Code(s): F10.920 - Alcohol use, unspecified with intoxication, uncomplicated Condition: Stable Instructions: ED Alcohol Intoxication Comments: You were evaluated with CT scans of the head and neck which were unremarkable for any serious findings. You were also worked up with laboratory studies which largely look good except for your alcohol level which was quite high. You have been observed in the emergency department for some hours and have improved dramatically as the alcohol has worn off. Please take care if you are going to drink alcohol at home, that you do not get up and around too much, as you do put yourself for at risk for falls, which at your age can cause significant trauma and disability.
[2023-12-11 06:33] VITALS: O2SAT 98
[2023-12-11 07:22] VITALS: BP 132/84
== END 2023-12-11 07:20 | disposition home or self-care (01) ==
LOC: EDUNIT# → ED 00:47
DX: F10.120 Alcohol abuse with intoxication, uncomplicated (principal); Y90.7 Blood alcohol level of 200-239 mg/100 ml; W18.30XA Fall on same level, unspecified, initial encounter; Y92.009 Unspecified place in unspecified non-institutional (private) residence as the place of occurrence of the external cause; I10 Essential (primary) hypertension; E78.00 Pure hypercholesterolemia, unspecified; E11.9 Type 2 diabetes mellitus without complications; Z79.899 Other long term (current) drug therapy; Z79.84 Long term (current) use of oral hypoglycemic drugs; Z91.81 History of falling
CPT/HCPCS: 36415; 70450; 72125; 80053; 83690; 85025; 93005; 99284; 99285; G0480; 82077